=== PATIENT | male | born 1970 | race African-American/Black ===

== ENCOUNTER 2018-01-09 20:11 | Emergency (ER) | payer BC, OTHER ==
[~2018-01-09] VITALS: Ht 165.1 cm; Wt 70.3 kg
[~2018-01-09 20:11] MED LIST: IBUPROFEN600 MG ORAL
[2018-01-09] MEDS ORDERED: NKM (20:31)
[2018-01-09] MEDS ORDERED: IBUPROFEN600 MG ORAL (21:20)
[2018-01-09] MEDS ORDERED: ROBAXIN-750750 MG PO (21:20)
[2018-01-09 21:27] VITALS: BP 134/82
--- NOTE | 2018-01-09 22:26 | Emergency Room Report ---
History of Present Illness General Chief Complaint: Lower Extremity Injury Source: Patient Present Illness HPI Patient reports right hip pain reports that he was working when he felt the pain He seemed to have improved with the discomfort however several days after when he was working again at the end of the day he began feeling pain to the right lower back area radiation to the buttock and right upper leg Denies any focal weakness pain is worse with ambulation Denies any acute fall or trauma Denies any neuropathy Denies any loss of control of bowel or urination Allergies: Coded Allergies: No Known Allergies (Unverified , 11/01/15) Patient History Past Medical History: see triage record Pertinent Family History: none Reviewed Nursing Documentation: PMH: Agreed; PSxH: Agreed Nursing Documentation-PMH Past Medical History: No Stated History Review of Systems All Other Systems: negative except mentioned in HPI Physical Exam Vital Signs Date Time Temp Pulse Resp B/P (MAP) Pulse Ox O2 Delivery O2 Flow Rate FiO2 01/09/18 20:28 98.0 75 16 134/82 97 Room Air 98.1 Sp02 EP Interpretation: reviewed, normal General Appearance: well appearing, no apparent distress Head: normocephalic, atraumatic Eyes: bilateral eye PERRL, bilateral eye EOMI ENT: normal pharynx, normal voice Neck: supple, thyroid normal Respiratory: lungs clear Musculoskeletal: other - Patient has discomfort in the right posterior superior iliac crest on palpation, pelvic rock itself was negative patient is ambulatory sensory intact Neurologic: responsive, sliver lap tender III-XII nml as tested, motor strength/tone normal Skin: normal color, no rash Lymphatic: no adenopathy Medical Decision Making Diagnostic Impression: Primary Impression: sciatica Additional Impression: back pain ER Course Given the patient's subacute presentation imaging study was obtained No obvious acute pathology entertained Patient's discomfort and clinical exam appears to be in line with likely sciatic component patient requires close outpatient follow-up Other X-Ray Diagnostic Results Other X-Ray Diagnostic Results : X-Ray ordered: Right hip # of Views/Limited Vs Complete: 3 View Indication: Pain EP Interpretation: Yes Interpretation: no dislocation, no soft tissue swelling Impression: No acute disease Electronically Signed by: Vicky Thomason DO Last Vital Signs Date Time Temp Pulse Resp B/P (MAP) Pulse Ox O2 Delivery O2 Flow Rate FiO2 01/09/18 21:27 98.0 16 134/82 97 Room Air 98.1 4//18 20:28 75 Status: improved Disposition: HOME, SELF-CARE Condition: Stable Scripts Methocarbamol* (ROBAXIN-750*) 750 Mg Tablet 750 MG PO TID, #21 TAB 0 Refills Prov: Vicky Thomason DO 01/09/18 Ibuprofen* (MOTRIN*) 600 Mg Tablet 600 MG ORAL Q8H PRN for For Pain, #30 TAB 0 Refills Prov: Vicky Thomason DO 01/09/18 Referrals: NON PHYSICIAN (PCP) Patient Instructions: Back Pain, Adult, Sciatica, [id number] Additional Instructions: Patient is provided with the discharge instructions notified to follow up with primary doctor in the next 2-3 days otherwise return to the er with any worsening symptoms. Please note that this report is being documented using [employer] technology. This can lead to erroneous entry secondary to incorrect interpretation by the dictating instrument. Vicky Thomason DO Jan 09, 2018 22:26
--- NOTE | 2018-01-10 10:39 | Diagnostic Imaging Report ---
Indication: Right hip pain Technique: 2 views of the right hip Comparison: none Findings: No acute fractures. No dislocations. The joint spaces are preserved Impression: Negative
== END 2018-01-09 21:34 | disposition home or self-care (01) ==
LOC: EMR 21:31
DX: M54.41 Lumbago with sciatica, right side (principal)
CPT/HCPCS: 99284